=== PATIENT | female | born 1990 | race African-American/Black ===

== ENCOUNTER 2019-10-01 12:26 | Emergency (ER) | payer MEDICAID ==
[~2019-10-01] VITALS: Ht 172.7 cm; Wt 92.5 kg
[2019-10-01 12:35] VITALS: BP 133/90; Ht 172.7 cm; Wt 92.5 kg
== END 2019-10-01 13:46 | disposition home or self-care (01) ==
LOC: ED 12:26
DX: R19.7 Diarrhea, unspecified (principal)

== ENCOUNTER 2019-10-12 10:14 | Emergency (ER) | payer MEDICAID ==
[~2019-10-12] VITALS: Ht 172.7 cm; Wt 91.6 kg
[2019-10-12 10:24] VITALS: Ht 172.7 cm; Wt 91.6 kg
[2019-10-12 12:30] LABS: BASOPHIL % 0.3 % (0-2); RED CELL DISTRIBUTION WIDTH 13.8 % (11.5-14.5)
[2019-10-12 12:33] LABS: ALKALINE PHOSPHATASE 109 U/L (46-116); ALT/SGPT 28 U/L (14-59); AST/SGOT 22 U/L (15-37); BILIRUBIN TOTAL 0.7 mg/dL (0.20-1.00); CALCIUM 8.5 mg/dL (8.5-10.1); CARBON DIOXIDE 32.4 mmol/L (21-32); CHLORIDE SERUM 97 mmol/L (98-107); CREATININE SERUM 0.8 mg/dL (0.6-1.0); GFR1 > 60 mL/min; GLUCOSE SERUM 186 mg/dL (74-106); LIPASE 86 IU/L (73-393); SODIUM SERUM 135 mmol/L (136-145); TOTAL PROTEIN, SERUM 7.3 g/dL (6.4-8.2)
[2019-10-12 12:39] LABS: PLATELET COUNT 697 x10^3mcL (130-400)
[2019-10-12 12:57] LABS: ALBUMIN 2.3 g/dL (3.4-5.0)
[2019-10-12 12:58] LABS: POTASSIUM SERUM 2.6 mmol/L (3.5-5.1)
[2019-10-12 14:12] VITALS: BP 112/69
== END 2019-10-12 14:12 | disposition home or self-care (01) ==
LOC: ED 10:14
PROVIDERS: Emergency Medicine
DX: N39.0 Urinary tract infection, site not specified (principal); R19.7 Diarrhea, unspecified
CPT/HCPCS: J1885; J2405; J7030